=== PATIENT | male | born 1950 | race Caucasian/White ===

== ENCOUNTER 2016-08-19 10:04 | Inpatient (IN) | payer OTHER, MEDICARE ==
[~2016-08-19] VITALS: Ht 172.7 cm; Wt 93.1 kg
[~2016-08-19 10:04] MED LIST: CELE200 PO; FENT75DI TD; GLUC10TA3 PO; LISI40TA PO; ZOCO40TA PO; ZOFR4TAB3 SL; [UNRECOGNIZED DRUG - OTHER]
[2016-08-19 10:14] VITALS: BP 141/84; PULSE 74; RESP 16; TEMP 98.2; O2SAT 98
[2016-08-19] MEDS ORDERED: LISI10TA3 PO (10:33)
[2016-08-19] MEDS ORDERED: TORS20TA PO (10:33)
[2016-08-19] MEDS ORDERED: ASPI81CH CHEW (10:33)
[2016-08-19] MEDS ORDERED: CELE1CAP6 PO (10:33)
[2016-08-19] MEDS ORDERED: TRAM50TA PO (10:33)
[2016-08-19] MEDS ORDERED: FENT25DI T-DERMAL (10:33)
[2016-08-19] MEDS ORDERED: GLIP10TA6 PO (10:33)
--- NOTE | 2016-08-19 10:44 | PD ---
HPI Chief Complaint: Dizziness Time Seen by Provider: 10:32 Travel History International Travel<30 days: No Contact w/Intl Traveler<30days: No Traveled to known affect area: No History of Present Illness HPI 66-year-old male with history of hypertension, diabetes, right nephrectomy secondary to cancer 10 years ago, presents to the ER today because patient is having 3 days history of intermittent dizziness where he states he feels like the room is spinning. He had a syncopal episode today according to his , she found him on the floor and he was somewhat disoriented. Patient does not remember episode. He states that the dizziness has subsided now. He denies any chest pains, shortness of breath, palpitations, vomiting, fevers, or any other symptoms. Modifying Factors: None Associated Signs & Symptoms: Dizziness, syncope Risk Factors: None PFSH Past Medical History Hx Anticoagulant Therapy: Yes (asa 81mg) Arthritis: Yes Blood Disorders: No Cancer: Yes (KIDNEY) Cardiovascular Problems: Yes (htn on meds) High Cholesterol: Yes Chemotherapy: No Diabetes: Yes (type 2) Patient Takes Glucophage: No Diminished Hearing: No Endocrine: Yes Gastrointestinal Disorders: No Glaucoma: Yes Genitourinary: Yes Hepatitis: No Hiatal Hernia: No Hypertension: Yes Immune Disorder: No Kidney Stones: Yes Medical other: Yes (LUMBAR FUSION) Musculoskeletal: Yes Neurologic: No Psychiatric: No Respiratory: Yes (EMPHYSEMA,HX PNEUMONIA) Immunizations Current: Yes Radiation Therapy: No Renal Failure: Yes Thyroid Disease: No Past Surgical History Abdominal Surgery: Yes (APPENDECTOMY) Appendectomy: Yes Cardiac Surgery: No Ear Surgery: No Endocrine Surgery: No Eye Surgery: Yes (LEFT CATARACT SX, LEFT VITRECTOMY) Genitourinary Surgery: Yes (RIGHT NEPHRECTOMY) Gynecologic Surgery: No Joint Replacement: Yes (BILATERAL SHOULDER) Neurologic Surgery: No Oral Surgery: Yes (TEETH EXTRACTED,DENTAL IMPLANTS) Pacemaker: No Thoracic Surgery: No Other Surgery: Yes Social History Alcohol Use: No Tobacco Use: Yes (1/2K/DAY) Substance Use: No Allergies-Medications (Allergen,Severity, Reaction): Coded Allergies: Neurontin (Verified Allergy, Severe, Swelling, 08/14/11) Reported Meds & Prescriptions Reported Meds & Active Scripts Active Reported Glipizide 10 Mg Tab 10 Mg PO BIDAC Take 30 minutes before a meal Torsemide 20 Mg Tab 20 Mg PO DAILY Celecoxib 100 Mg Cap 100 Mg PO BID Tramadol (Tramadol HCl) 50 Mg Tab 50 Mg PO Q4H PRN Fentanyl Patch 72 HR (Fentanyl) 25 Mcg/Hr Patch 25 Mcg T-DERMAL Q72H Lisinopril 10 Mg Tab 10 Mg PO DAILY Aspirin 81 Mg Chew 81 Mg CHEW DAILY Review of Systems Except as stated in HPI: all other systems reviewed are Neg Physical Exam Narrative GENERAL: Well-developed elderly white male patient currently in mild distress. Awake and oriented 3. SKIN: Focused skin assessment warm/dry. HEAD: Atraumatic. Normocephalic. EYES: Pupils equal and round. No scleral icterus. No injection or drainage. ENT: No nasal bleeding or discharge. Mucous membranes pink and moist. NECK: Trachea midline. No JVD. CARDIOVASCULAR: Regular rate and rhythm. No murmur appreciated. RESPIRATORY: No accessory muscle use. Clear to auscultation. Breath sounds equal bilaterally. GASTROINTESTINAL: Abdomen soft, non-tender, nondistended. Hepatic and splenic margins not palpable. MUSCULOSKELETAL: No obvious deformities. No clubbing. No cyanosis. No edema. NEUROLOGICAL: Awake and alert. No obvious cranial nerve deficits. Motor grossly within normal limits. Normal speech. PSYCHIATRIC: Appropriate mood and affect; insight and judgment normal. Data Data Last Documented VS Vital Signs Date Time Temp Pulse Resp B/P Pulse Ox O2 Delivery O2 Flow Rate FiO2 08/19/16 11:22 98 Room Air 08/19/16 10:14 98.2 74 16 141/84 Orders Electrocardiogram (08/19/16 10:32) Complete Blood Count With Diff (08/19/16 10:32) Comprehensive Metabolic Panel (08/19/16 10:32) Magnesium (Mg) (08/19/16 10:32) Ckmb (Isoenzyme) Profile (08/19/16 10:32) Troponin I (08/19/16 10:32) Urinalysis - C+S If Indicated (08/19/16 10:32) Chest, Single Ap (08/19/16 10:32) Ct Brain W/O Iv Contrast(Rout) (08/19/16 10:32) Ecg Monitoring (08/19/16 10:32) Iv Access Insert/Monitor (08/19/16 10:32) Oximetry (08/19/16 10:32) Meclizine (Antivert) (08/19/16 10:45) Sodium Chloride 0.9% Flush (Ns Flush) (08/19/16 10:45) Aspirin (Aspirin) (08/19/16 11:30) Labs Laboratory Tests Test 08/19/16 10:51 White Blood Count 9.5 TH/MM3 Red Blood Count 4.74 MIL/MM3 Hemoglobin 14.8 GM/DL Hematocrit 43.3 % Mean Corpuscular Volume 91.3 FL Mean Corpuscular Hemoglobin 31.1 PG Mean Corpuscular Hemoglobin 34.1 % Concent Red Cell Distribution Width 12.0 % Platelet Count 196 TH/MM3 Mean Platelet Volume 6.9 FL Neutrophils (%) (Auto) 75.4 % Lymphocytes (%) (Auto) 17.4 % Monocytes (%) (Auto) 5.2 % Eosinophils (%) (Auto) 1.6 % Basophils (%) (Auto) 0.4 % Neutrophils # (Auto) 7.1 TH/MM3 Lymphocytes # (Auto) 1.7 TH/MM3 Monocytes # (Auto) 0.5 TH/MM3 Eosinophils # (Auto) 0.2 TH/MM3 Basophils # (Auto) 0.0 TH/MM3 CBC Comment DIFF FINAL Differential Comment Urine Color STRAW Urine Turbidity CLEAR Urine pH 6.5 Urine Specific Marlow 1.005 Urine Protein NEG mg/dL Urine Glucose (UA) NEG mg/dL Urine Ketones NEG mg/dL Urine Occult Blood NEG Urine Nitrite NEG Urine Bilirubin NEG Urine Leukocyte Esterase NEG Urine Squamous Epithelial 0-5 /hpf Cells Urine Bacteria RARE /hpf Microscopic Urinalysis Comment CULT NOT INDICATED Sodium Level 136 MEQ/L Potassium Level 4.2 MEQ/L Chloride Level 101 MEQ/L Carbon Dioxide Level 28.1 MEQ/L Anion Gap 7 MEQ/L Blood Urea Nitrogen 28 MG/DL Creatinine 1.10 MG/DL Estimat Glomerular Filtration 67 ML/MIN Rate Random Glucose 249 MG/DL Calcium Level 9.3 MG/DL Magnesium Level 2.3 MG/DL Total Bilirubin 0.3 MG/DL Aspartate Amino Transf 13 U/L (AST/SGOT) Alanine Aminotransferase 30 U/L (ALT/SGPT) Alkaline Phosphatase 116 U/L Total Creatine Kinase 90 U/L Troponin I LESS THAN 0.02 NG/ML Total Protein 7.0 GM/DL Albumin 3.9 GM/DL [facility] Medical Decision Making Medical Screen Exam Complete: Yes Emergency Medical Condition: Yes Medical Record Reviewed: Yes Interpretation(s) Normal sinus rhythm at a rate of 77 bpm with no signs of acute ST-T changes. Laboratory Tests Test 08/19/16 10:51 Mean Platelet Volume 6.9 FL (7.0-11.0) Neutrophils (%) (Auto) 75.4 % (16.0-70.0) Urine Bacteria RARE /hpf (NONE) Blood Urea Nitrogen 28 MG/DL (7-18) Estimat Glomerular Filtration 67 ML/MIN (>89) Rate Random Glucose 249 MG/DL (74-106) Aspartate Amino Transf 13 U/L (15-37) (AST/SGOT) Troponin I LESS THAN 0.02 NG/ML (0.02-0.05) Last [address] 08/19/16 1032 Signed Impressions: Service Date/Time: Friday, August 19, 2016 10:59 - CONCLUSION: 1. No acute intracranial abnormality. Wero Oshea MD Chest X-Ray 08/19/16 1032 Signed Impressions: Service Date/Time: Friday, August 19, 2016 10:58 - CONCLUSION: No acute disease. Jordy Hurd MD FACR Differential Diagnosis Dizziness, syncopal episodebenign positional vertigo versus hypertensive urgency versus acute intracranial processes versus CVA Narrative Course EKG did not show any signs of dysrhythmias. CT of the brain is negative for any signs of acute intracranial processes. Lab work is unremarkable. His blood pressures low and high side but vital signs otherwise unremarkable. Patient has no focal neurological deficits currently. However, I am concerned about patient's syncopal episode which is fairly atypical for vertigo. He had been given meclizine in the ER with mild symptom relief. At this point, aspirin was given and my plan would be to admit him for further evaluation for possibility of central vertigo, TIA, versus other acute processes causing syncope. Case was discussed with [facility] hospitalists for admission. Diagnosis Primary Impression: Syncope Admitting Information Admitting Physician Requests: Admit Daisy Staton MD Aug 19, 2016 10:44
[2016-08-19] MEDS ORDERED: MECLIZINE HCL 25 MG TAB PO ONE (10:45)
[2016-08-19] MEDS ORDERED: SODIUM CHLORIDE 0.9% FLUSH 10 ML FLUSH IVF PRN (10:45)
[2016-08-19 10:55] LABS: AUTOMATED NEUTROPHIL # 7.1 TH/MM3 (1.8-7.7); BASOPHIL % 0.4 % (0.0-2.0); EOSINOPHIL # 0.2 TH/MM3 (0-0.4); EOSINOPHIL % 1.6 % (0.0-4.0); HEMATOCRIT 43.3 % (39.0-51.0); LYMPH % 17.4 % (9.0-44.0); LYMPHOCYTE # 1.7 TH/MM3 (1.0-4.8); MEAN CELL VOLUME 91.3 FL (80.0-100.0); MEAN CORPUSCULAR HEMOGLOBIN 31.1 PG (27.0-34.0); MEAN CORPUSCULAR HGB CONC 34.1 % (32.0-36.0); MONO % 5.2 % (0.0-8.0); NEUT % 75.4 % (16.0-70.0); PLATELET COUNT 196 TH/MM3 (150-450); RED BLOOD COUNT 4.74 MIL/MM3 (4.50-5.90); WHITE BLOOD COUNT 9.5 TH/MM3 (4.0-11.0)
[2016-08-19 10:58] LABS: BLOOD, URINE NEG (NEG); GLUCOSE,URINE NEG (NEG); KETONE, URINE NEG (NEG); NITRITE,URINE NEG (NEG); PH, URINE 6.5 (5.0-8.5)
[2016-08-19 11:02] LABS: URINE COLOR STRAW (YELLW/STRAW)
[2016-08-19 11:03] LABS: CHLORIDE 101 MEQ/L (98-107); POTASSIUM 4.2 MEQ/L (3.5-5.1); SODIUM (NA) 136 MEQ/L (136-145)
[2016-08-19 11:07] LABS: ANION GAP 7 MEQ/L (5-15); BICARBONATE 28.1 MEQ/L (21.0-32.0); BLOOD UREA NITROGEN 28 MG/DL (7-18); MAGNESIUM 2.3 MG/DL (1.5-2.5)
--- NOTE | 2016-08-19 11:09 | RADHPO ---
EXAM DATE/TIME: 08/19/2016 10:58 [facility] COMPARISON: No previous studies available for comparison. INDICATIONS : Chest palpatations and dizziness MEDICAL HISTORY : None. SURGICAL HISTORY : None. ENCOUNTER: Initial ACUITY: 3 days PAIN SCORE: 0/10 LOCATION: Bilateral chest FINDINGS: A single view of the chest demonstrates the lungs to be symmetrically aerated without evidence of mas s, infiltrate or effusion. The cardiomediastinal contours are unremarkable. Osseous structures are intact. CONCLUSION: No acute disease. Jordy Hurd MD FACR on August 19, 2016 at 11:07 Board Certified Radiologist. This report was verified electronically.
[2016-08-19 11:10] LABS: ALT (GPT) 30 U/L (12-78); AST (GOT) 13 U/L (15-37); GLOMERULAR FILTRATION RATE 67 ML/MIN (>89)
[2016-08-19 11:11] LABS: BACTERIA, URINE RARE /hpf; COMMENT (UR) CULT NOT INDICATED; CULTURE IF INDICATED CULT NOT INDICATED; SQUAMOUS EPITHELIAL CELL URINE 0-5 /hpf (0-5)
[2016-08-19 11:12] LABS: TOTAL BILIRUBIN ADULT 0.3 MG/DL (0.2-1.0)
[2016-08-19 11:13] LABS: ALKALINE PHOSPHATASE 116 U/L (45-117)
[2016-08-19 11:14] LABS: HEMO FLAGS DIFF FINAL
--- NOTE | 2016-08-19 11:14 | RADHPO ---
EXAM DATE/TIME: 08/19/2016 10:59 [facility] COMPARISON: No previous studies available for comparison. INDICATIONS : Dizziness for three days and felt like he was going to pass out today. RADIATION DOSE: 59.00 CTDIvol (mGy) MEDICAL HISTORY : Hypertension. Anticoagulant therapy. Right renal cancer. SURGICAL HISTORY : Nephrectomy, right. Appendectomy. ENCOUNTER: Initial ACUITY: 3 days PAIN SCALE: 0/10 LOCATION: cranial TECHNIQUE: Multiple contiguous axial images were obtained of the head. Using automated exposure control and adj ustment of the mA and/or kV according to patient size, radiation dose was kept as low as reasonably a chievable to obtain optimal diagnostic quality images. FINDINGS: CEREBRUM: The ventricles are normal for age. No evidence of midline shift, mass lesion, hemorrhage or acute in farction. No extra-axial fluid collections are seen. POSTERIOR FOSSA: The cerebellum and brainstem are intact. The 4th ventricle is midline. The cerebellopontine angle i s unremarkable. EXTRACRANIAL: The visualized portion of the orbits is intact. SKULL: The calvaria is intact. No evidence of skull fracture. CONCLUSION: 1. No acute intracranial abnormality. Wero Oshea MD on August 19, 2016 at 11:10 Board Certified Radiologist. This report was verified electronically.
[2016-08-19 11:15] LABS: CREATINE KINASE 90 U/L (39-308)
[2016-08-19 11:22] VITALS: O2SAT 98
[2016-08-19] MEDS ORDERED: ASPIRIN 325 MG TAB PO ONE (11:30)
[2016-08-19 13:42] VITALS: BP 136/71; PULSE 77; RESP 18; O2SAT 97
[2016-08-19] MEDS ORDERED: SENNOSIDES 8.6 MG TAB PO PRN (15:15)
[2016-08-19] MEDS ORDERED: LACTULOSE SYRUP 20 GM/30 ML CUP PO PRN (15:15)
[2016-08-19] MEDS ORDERED: BISACODYL 10 MG SUPP RECTAL PRN (15:15)
[2016-08-19] MEDS ORDERED: ACETAMINOPHEN 325 MG TAB PO PRN (15:15)
[2016-08-19] MEDS ORDERED: NALOXONE HCL 0.4 MG/ML AMP IV PRN (15:15)
[2016-08-19] MEDS ORDERED: ONDANSETRON HCL 4 MG/2 ML VIAL IVP PRN (15:15)
[2016-08-19] MEDS ORDERED: SODIUM CHLORIDE 0.9% FLUSH 10 ML FLUSH IV FLUSH PRN (15:15)
[2016-08-19] MEDS ORDERED: MAGNESIUM HYDROXIDE SUSP 30 ML CUP PO PRN (15:15)
[2016-08-19 15:18] VITALS: BP 145/88; PULSE 72; RESP 16; TEMP 97.6; O2SAT 95
--- NOTE | 2016-08-19 15:54 | RADHPO ---
EXAM DATE/TIME: 08/19/2016 15:31 [facility] COMPARISON: No previous studies available for comparison. INDICATIONS : Syncope. MEDICAL HISTORY : Hypercholesterolemia. Hypertension. Diabetes mellitus type 2. Glaucoma. Kidney cancer. Arthritis. SURGICAL HISTORY : Appendectomy. Nephrectomy, right. Bilateral shoulder surgery. Lumbar fusion. ENCOUNTER: Initial ACUITY: 1 day PAIN SCORE: 1/10 LOCATION: Bilateral neck PEAK SYSTOLIC VELOCITIES (cm/sec): ICA/CCA RATIO: Right: 1.0 Left: 0.8 ICA: Right: 85 Left: 89 CCA: Right: 89 Left: 112 ECA: Right: 98 Left: 90 VERTEBRAL: Right: 37 antegrade Left: 70 antegrade Elevated flow velocities and ICA/CCA ratios have been found to correlate with increased degrees of vessel stenosis, calculated as percentage of diameter relative to a normal segment of distal ICA/CCA FINDINGS: RIGHT CAROTID: There is no evidence for a hemodynamically significant carotid stenosis. Minimal int imal hyperplasia is present with scattered calcific plaque. LEFT CAROTID: There is no evidence for a hemodynamically significant carotid stenosis. Minimal inti mal hyperplasia is present with scattered calcific plaque. VERTEBRAL ARTERIES: Flow is antegrade in both vertebral arteries. MISCELLANEOUS: There are no ancillary masses or adenopathy. CONCLUSION: Negative examination for a hemodynamically significant carotid stenosis. Jordy Hurd MD FACR Board Certified Radiologist. This report was verified electronically.
[2016-08-19] MEDS: SODIUM CHLOR 0.9% 1000 ML INJ 1,000 ML IV SCH (16:09)
[2016-08-19 16:25] VITALS: BP 145/88; PULSE 72; RESP 16; TEMP 97.6; O2SAT 95
--- NOTE | 2016-08-19 19:03 | MB ---
cc: SELENA VASQUEZ M.D. DATE OF CONSULTATION 08/19/16 HISTORY OF PRESENT ILLNESS A 66-year-old seen in neurological consultation because of dizziness and syncope. The patient has been having dizziness for the past 3 days. Today apparently his left home and the patient was dizzy and called her later on. She came and saw him on the floor, he does not have good recollection of the event but he was apparently poorly responsive. He was brought to the hospital. CT brain and carotid ultrasound studies were normal. He has no neurologic history otherwise. He denies double vision. No paresthesias. No speech difficulty. PAST MEDICAL HISTORY His medical history includes a nephrectomy from cancer 10 years ago and he has a single kidney. History of diabetes and hypertensive disease. He and he has a neurostimulator for pain. MEDICATIONS The patient takes: 1. Baby aspirin. 2. Lisinopril. 3. Celebrex. 4. Fentanyl patch. 5. Glipizide. 6. Tramadol. 7. Torsemide. NEUROLOGICAL EXAMINATION Neurological examination was very benign. Ocular movements and visual hernández full. Neck is supple. Pupils equal and reactive. Speech is normal. He has good strength and coordination on the bedside exam. Reflexes were 1+, diminished but present at the ankles and plantar responses flexor. DATA Other ancillary data, chemistry essentially normal with the BUN being 28 and GFR is 67. Sodium, potassium normal. Glucose random was 249. WBC 9.5, hemoglobin 14.8, platelets 196. ASSESSMENT/PLAN Recurrent vertigo probably from peripheral vestibular disease. He had a syncopal episode as well. I will see if we can run CT angio head and neck. He cannot have an MRI because of the neurostimulator. An EEG is to be done. He will be followed. Thank you for asking us to assist in his care. Selena Vasquez MD OFC/EO /5:20 PM /6:52 PM
[2016-08-19] MEDS ORDERED: IODIXANOL 320 MG/ML 10 ML VIAL (for Rad CT) IV ONE (19:15)
[2016-08-19 20:00] VITALS: BP 144/84; PULSE 77; RESP 18; TEMP 95.9; O2SAT 96
[2016-08-19] MEDS: DOCUSATE SODIUM 50 MG/SENNA 8.6 MG TAB PO SCH (21:00)
[2016-08-19] MEDS: SODIUM CHLORIDE 0.9% FLUSH 10 ML FLUSH IV FLUSH SCH (21:00)
--- NOTE | 2016-08-19 23:17 | RADHPO ---
EXAM DATE/TIME: 08/19/2016 19:00 [facility] COMPARISON: No previous studies available for comparison. INDICATIONS : Dizziness. IV CONTRAST: 50 cc Visipaque (iodixanol) IV ; Cumulative dose for multiple exams. RADIATION DOSE: 42.31 CTDIvol (mGy) ; Combined studies MEDICAL HISTORY : Hypertension. Anticoagulant therapy. Right renal cancer. SURGICAL HISTORY : Nephrectomy, right. Appendectomy. ENCOUNTER: Subsequent ACUITY: 3 days PAIN SCALE: 0/10 LOCATION: cranial TECHNIQUE: Volumetric scanning was performed using a multi-row detector CT scanner. The data was post processed with a variety of visualization algorithms including full volume maximum intensity projection, multi -planar sliding thin slab reformation, curved planar reformation, and surface rendering techniques. Using automated exposure control and adjustment of the mA and/or kV according to patient size, radiat ion dose was kept as low as reasonably achievable to obtain optimal diagnostic quality images. FINDINGS: There is excellent visualization of the major intracranial arteries out to the second-order branch ve ssels. There is no evidence for aneurysm, vessel truncation or stenosis, and no evidence for vascula r malformation. The anterior cerebral segment on the left is quite hypoplastic. The P1 segment on the right is hypopl astic. Prominent communicating artery on the right contributes the majority of the flow to the poste rior cerebral system CONCLUSION: Normal examination with a hypoplastic left A1 and right P1. No aneurysm is identified. Malik Diaz MD on August 19, 2016 at 23:15 Board Certified Radiologist. This report was verified electronically.
--- NOTE | 2016-08-19 23:30 | RADHPO ---
EXAM DATE/TIME: 08/19/2016 19:00 [facility] COMPARISON: No previous studies available for comparison. INDICATIONS : Dizziness. IV CONTRAST: 50 cc Visipaque (iodixanol) IV ; Cumulative dose for multiple exams. RADIATION DOSE: 42.31 CTDIvol (mGy) ; Combined studies MEDICAL HISTORY : Hypertension. Anticoagulant therapy. Right renal cancer. SURGICAL HISTORY : Nephrectomy, right. Appendectomy. ENCOUNTER: Subsequent ACUITY: 3 days PAIN SCALE: 0/10 LOCATION: neck Elevated flow velocities and ICA/CCA ratios have been found to correlate with increased degrees of vessel stenosis, calculated as percentage of diameter relative to a normal segment of distal ICA/CCA. TECHNIQUE: Volumetric scanning was performed using a multirow detector CT scanner. The data was post processed with a variety of visualization algorithms including full-volume maximum intensity projection, multip lanar sliding thin-slab reformation, curved-planar reformation, and surface-rendering techniques. Us ing automated exposure control and adjustment of the mA and/or kV according to patient size, radiatio n dose was kept as low as reasonably achievable to obtain optimal diagnostic quality images. FINDINGS: AORTIC ARCH: There is a three-vessel origin of the great vessels from the aorta. No evidence of ostial narrowing. RIGHT CAROTID: The common carotid artery is intact. The carotid bulb has a normal configuration without ulceration o r narrowing. The internal carotid artery lumen is smooth without stenosis. The external carotid aquilino ry is intact. LEFT CAROTID: The common carotid artery is intact. The carotid bulb has a normal configuration without ulceration or narrowing. The internal carotid artery lumen is smooth without stenosis. The external carotid ar keny is intact. VERTEBRALS: The vertebral arteries have a symmetric diameter. No stenotic lesions are seen. CONCLUSION: Normal examination. Malik Diaz MD on August 19, 2016 at 23:26 Board Certified Radiologist. This report was verified electronically.
[2016-08-20] VITALS (7 sets, daily range): BP systolic 114–142; BP diastolic 70–87; PULSE 67–87; RESP 18–20; TEMP 96.9–98; O2SAT 96–99
[2016-08-20] MEDS: SODIUM CHLOR 0.9% 1000 ML INJ 1,000 ML IV SCH ×2 (01:15→21:15)
[2016-08-20 06:27] LABS: AUTOMATED NEUTROPHIL # 6.3 TH/MM3 (1.8-7.7); BASOPHIL % 0.4 % (0.0-2.0); EOSINOPHIL # 0.2 TH/MM3 (0-0.4); EOSINOPHIL % 2.7 % (0.0-4.0); HEMATOCRIT 42.3 % (39.0-51.0); HEMO FLAGS DIFF FINAL; LYMPH % 21.6 % (9.0-44.0); LYMPHOCYTE # 1.9 TH/MM3 (1.0-4.8); MEAN CELL VOLUME 93.2 FL (80.0-100.0); MEAN CORPUSCULAR HEMOGLOBIN 31.2 PG (27.0-34.0); MEAN CORPUSCULAR HGB CONC 33.5 % (32.0-36.0); MONO % 5.1 % (0.0-8.0); NEUT % 70.2 % (16.0-70.0); PLATELET COUNT 192 TH/MM3 (150-450); RED BLOOD COUNT 4.54 MIL/MM3 (4.50-5.90); RED CELL DISTRIBUTION WIDTH 12.6 % (11.6-17.2); WHITE BLOOD COUNT 8.8 TH/MM3 (4.0-11.0)
[2016-08-20 06:44] LABS: BICARBONATE 26.3 MEQ/L (21.0-32.0); POTASSIUM 3.8 MEQ/L (3.5-5.1)
[2016-08-20] MEDS: DOCUSATE SODIUM 50 MG/SENNA 8.6 MG TAB PO SCH ×2 (09:00→21:00)
--- NOTE | 2016-08-20 09:05 | EC ---
Study Study Date:08/19/2016 STUDY CONCLUSIONS SUMMARY - Left ventricle: The cavity size was normal. Wall thickness was normal. Systolic function was normal. The estimated ejection fraction was in the range of 55% to 60%. Wall motion was normal; there were no regional wall motion abnormalities. - Mitral valve: Mild regurgitation. - Tricuspid valve: Mild regurgitation. - Pulmonary arteries: PA peak pressure: 37mm Hg (S). If LV function is below 40, please consider prescribing an ACEI or ARB or document rationale for non-use. PROCEDURE DATA STUDY STATUS: Elective. Procedure: Transthoracic echocardiography. Image quality was good. Scanning was performed from the parasternal, apical, and subcostal acoustic windows. Study completion: The patient tolerated the procedure well. Transthoracic echocardiography. M-mode, complete 2D, complete spectral Doppler, and color Doppler. Patient status: Inpatient. CARDIAC ANATOMY LEFT VENTRICLE: The cavity size was normal. Wall thickness was normal. Systolic function was normal. The estimated ejection fraction was in the range of 55% to 60%. Wall motion was normal; there were no regional wall motion abnormalities. AORTIC VALVE: Trileaflet; normal thickness leaflets. Doppler: Transvalvular velocity was within the normal range. There was no stenosis. No regurgitation. AORTA: Aortic root: The aortic root was normal in size. MITRAL VALVE: Structurally normal valve. Doppler: Transvalvular velocity was within the normal range. There was no evidence for stenosis. Mild regurgitation. LEFT ATRIUM: The atrium was normal in size. RIGHT VENTRICLE: The cavity size was normal. Wall thickness was normal. PULMONIC VALVE: Doppler: Transvalvular velocity was within the normal range. There was no evidence for stenosis. No regurgitation. TRICUSPID VALVE: Structurally normal valve. Doppler: Transvalvular velocity was within the normal range. Mild regurgitation. PULMONARY ARTERY: The main pulmonary artery was normal-sized. Systolic pressure was within the normal range. RIGHT ATRIUM: The atrium was normal in size. PERICARDIUM: There was no pericardial effusion. SYSTEMIC VEINS: Inferior vena cava: The vessel was normal in size. BASIC MEASUREMENTS ADULT Normal Left ventricle LV internal dimension, ED, chordal level, *39.6 mm 43-52 PLAX LV internal dimension, ES, chordal level, 30.5 mm 23-38 PLAX Fractional shortening, chordal level, PLAX *23 % >29 LV posterior wall thickness, ED 11.4 mm IVS/LVPW ratio, ED 1.03 <1.3 Ventricular septum Septal thickness, ED 11.7 mm Aortic valve Leaflet separation 23 mm 15-26 Right ventricle RV internal dimension, ED, PLAX 32.7 mm 19-38 BASIC MEASUREMENTS ADULT Normal Aortic valve Leaflet separation 23 mm 15-26 Aorta Root diameter, ED 31 mm 20-37 Left atrium Anterior-posterior dimension, ES 30 mm 19-40 LA/aortic root ratio 0.97 DOPPLER MEASUREMENTS ADULT Normal Main pulmonary artery Pressure, S *37 mm Hg =30 Mitral valve Peak E-wave velocity 54.3 cm/s Peak A-wave velocity 89.3 cm/s Peak E/A ratio 0.6 Tricuspid valve Regurgitant peak velocity 258 cm/s Peak RV-RA gradient, S 27 mm Hg Maximal regurgitant velocity 258 cm/s Systemic veins Estimated CVP 10 mm Hg Right ventricle RV pressure, S *37 mm Hg <30 LEGEND: Mean values are shown as u=mean value. Asterisk (*) singh values outside specified normal range. Prepared and signed by Benito Rudd [id number]
[2016-08-20] MEDS: SODIUM CHLORIDE 0.9% FLUSH 10 ML FLUSH IV FLUSH SCH ×2 (10:14→21:58)
[2016-08-20] MEDS ORDERED: ZOCO40TA PO (12:45)
--- NOTE | 2016-08-20 13:09 | MG ---
cc: MORELIA WADE Lab No: [id number] Date: 08/20/2016 Age: Sex: M Race: TECHNIQUE 17 channel EEG. DESCRIPTION The background rhythm reveals a symmetrical alpha rhythm frequency 8-9 Hz. During drowsiness there is slowing in the theta range at 6 Hz. Photic stimulation results in a normal driving response. There are no lateralizing features seen and no epileptiform discharges. Hyperventilation was not done. INTERPRETATION Normal EEG. MD DARON Valencia/candie /12:46 PM /12:56 PM
[2016-08-20] MEDS ORDERED: traMADol HCL 50 MG TAB PO PRN (13:30)
[2016-08-20] MEDS ORDERED: DEXTROSE 50% IN WATER 50 ML VIAL(D50) IV PRN (13:45)
[2016-08-20] MEDS ORDERED: GLUCAGON 1 MG/ML VIAL OTHER PRN (13:45)
[2016-08-20] MEDS ORDERED: fentaNYL 25 MCG/HR PATCH T-DERMAL SCH (14:00)
--- NOTE | 2016-08-20 14:27 | MH ---
cc: LENNY GRANADOS MD DATE OF ADMISSION: 08/19/2016 CHIEF COMPLAINT Dizziness. HISTORY OF PRESENT ILLNESS: This is a 66 year-old male whose past medical history and surgical history is significant for arthritis, history of cancer of the kidney, hypertension, hyperlipidemia, diabetes mellitus type 2. History of lumbar fusion. Kidney stones, history of emphysema, appendectomy, left cataract surgery. Left vitrectomy, right nephrectomy, bilateral shoulder surgery, teeth extraction, dental implants, smoker for many years, complaining of dizziness and also has history of arthritis, hyperlipidemia. He came to the emergency room at [facility]. He had an nephrectomy of the right kidney ten years ago secondary to cancer and complaining of intermittent dizziness, however, he states that feels like the room is spinning. He said he had a syncopal episode today, according to his who found him on the floor and he was somewhat disordered. The patient does not remember episode. The patients states that the dizziness has subsided now but only comes with head movement. Denies any chest pain, shortness of breath, palpitations or vomiting, fever, chills, denies any nausea and vomiting, diarrhea, constipation, denies any black stool or blood in stool and denies any other symptoms other then that. PAST MEDICAL HISTORY/PAST SURGICAL HISTORY: As dictated above. SOCIAL HISTORY: Denies drinking alcohol, denies any drug abuse. Lives at home with the on disability. FAMILY HISTORY: Significant for diabetes mellitus. ALLERGIES NEURONTIN MEDICATIONS: 1. Glipizide 10 mg p.o. daily. 2. Furosemide 20 mg p.o. daily. 3. Celebrex 100 mg p.o. twice a day. 4. Tramadol 50 mg q four hours as needed pain. 5. Fentanyl 72 hour patches, 25 mcg every 72 hours. 6. Lisinopril 10 mg daily. 7. Aspirin 81 mg p.o. daily. REVIEW OF SYSTEMS Positive for dizziness. All other systems negative. PHYSICAL EXAMINATION: IN GENERAL: This is a 66 year-old male sitting on the bed without any acute distress. VITAL SIGNS: Temperature 97.6. Heart rate 78, respirations 18, blood pressure 142/83. O2 saturation 97% on room air. HEAD, EYES, EARS, NOSE, AND THROAT: Normocephalic, atraumatic, extraocular muscles intact, Pupils equal, round and reactive to light. Oral mucosa is moist. NECK: The neck is supple, no visible thyromegaly or neck mass. Trachea is central. CARDIOVASCULAR SYSTEM: Regular rate and rhythm. RESPIRATORY: Clear to auscultation bilaterally. ABDOMEN: The abdomen is soft, nontender, bowel sounds. EXTREMITIES: No clubbing, cyanosis, full range of motion of all extremities. NEUROLOGIC: Cranial nerves intact, neck is supple. Pupils equal, round, reactive, speech is normal. Good strength, coordination, no gross motor sensory deficit. PSYCHIATRIC: Patient is cooperative, mood and affect are normal. LABORATORY FINDINGS: Complete blood count is totally unremarkable. Basic metabolic profile is totally unremarkable except for chloride of 109 high, blood urea nitrogen 23 high, glomerular filtration rate 75 low, glucose 151 high. Troponin I less then 0.02. Lactase is normal. Urine examination shows rare bacteria. CTA of the neck was done and shows normal examination. CT of the head was done and showed normal examination with hyperplastic left A1 and right A1, no aneurysm is identified. Carotid ultrasound done shows negative examination. No hemodynamically with significant stenosis. CT scan of the brain done shows nothing acute. Chest x-ray was done and shows nothing acute. ASSESSMENT AND PLAN: 1. This is a 66 year-old male who came to the emergency room, diagnosed with dizziness, CT of the head had carotid ultrasound and CT of the brain are within normal limits. The patient has dizziness with head movement. 2. Neurology has seen the patient, Dr. Weiss, most likely from peripheral vascular disease. The patient cannot have MRI because of neurotransmitter placement. The electroencephalogram will be done, further recommendations per neurology. 3. Symptom episode. Neurologist were noted, I will consult radiology for further recommendations. 4. History of hypertension, continue home medications. 5. History of diabetes mellitus, ADA diet 1800, we will <<5:57>> we will order a sliding scale, check blood sugars, monitor blood sugar. 6. Has history of chronic pain syndrome, continue with pain medications. 7. History of arthritis currently treated with Celebrex. 8. Deep venous thrombosis prophylaxis. SCDs. 9. Sickle-cell disease. 10. Gastrointestinal prophylaxis, Protonix 40 mg p.o. daily. We are going to manage the patient on a daily basis and make recommendations on a daily basis. MD Owen Blue /1:29 PM /1:39 PM
[2016-08-20] MEDS: glipiZIDE 10 MG TAB PO SCH (16:00)
[2016-08-20] MEDS: CELECOXIB 100 MG CAP PO SCH ×3 (16:00→21:57)
[2016-08-20] MEDS: PANTOPRAZOLE SOD 40 MG DELAYED RELEASE TAB PO SCH (16:01)
[2016-08-20] MEDS: LISINOPRIL 10 MG TAB PO SCH (16:01)
[2016-08-20] MEDS: MECLIZINE HCL 25 MG TAB PO SCH ×2 (16:11→18:58)
[2016-08-20] MEDS: ASPIRIN 81 MG CHEW TAB CHEW SCH (16:11)
[2016-08-20] MEDS: TORSEMIDE 20 MG TAB PO SCH (16:12)
[2016-08-20] MEDS: INSULIN ASPART SUPPLEMENTAL SCALE SQ SCH ×2 (16:21→21:57)
--- NOTE | 2016-08-20 21:47 | EKG ---
Date Performed: 08/19/2016 Time Performed: 10:34:46 PTAGE: 66 years EKG: Sinus rhythm Septal T wave changes are nonspecific Since previous tracing, no significant change noted Borderline ECG PREVIOUS TRACING : 12/02/2006 08.34 DOCTOR: Stefania Brown Interpretating Date/Time 08/20/2016 21:45:08
[2016-08-20] MEDS: PRAVASTATIN SOD 80 MG TAB PO SCH (21:57)
[2016-08-21] VITALS: BP 118/68; PULSE 80; RESP 16; TEMP 97.8; O2SAT 97
[2016-08-21] MEDS: MECLIZINE HCL 25 MG TAB PO SCH ×5 (00:28→23:55)
[2016-08-21 06:28] LABS: AUTOMATED NEUTROPHIL # 5.6 TH/MM3 (1.8-7.7); BASOPHIL % 0.5 % (0.0-2.0); EOSINOPHIL # 0.3 TH/MM3 (0-0.4); EOSINOPHIL % 2.8 % (0.0-4.0); HEMATOCRIT 44.4 % (39.0-51.0); HEMO FLAGS DIFF FINAL; LYMPH % 28.3 % (9.0-44.0); LYMPHOCYTE # 2.5 TH/MM3 (1.0-4.8); MEAN CELL VOLUME 92.5 FL (80.0-100.0); MEAN CORPUSCULAR HGB CONC 33.5 % (32.0-36.0); MONO % 5.9 % (0.0-8.0); NEUT % 62.5 % (16.0-70.0); PLATELET COUNT 188 TH/MM3 (150-450); RED CELL DISTRIBUTION WIDTH 12.1 % (11.6-17.2); WHITE BLOOD COUNT 8.9 TH/MM3 (4.0-11.0)
[2016-08-21 06:43] LABS: CHLORIDE 106 MEQ/L (98-107); POTASSIUM 3.9 MEQ/L (3.5-5.1); SODIUM (NA) 142 MEQ/L (136-145)
[2016-08-21 06:48] LABS: ANION GAP 6 MEQ/L (5-15); BICARBONATE 30.1 MEQ/L (21.0-32.0); BLOOD UREA NITROGEN 22 MG/DL (7-18)
[2016-08-21 06:51] LABS: ALT (GPT) 27 U/L (12-78); AST (GOT) 14 U/L (15-37); GLOMERULAR FILTRATION RATE 61 ML/MIN (>89)
[2016-08-21 06:53] LABS: TOTAL BILIRUBIN ADULT 0.6 MG/DL (0.2-1.0)
[2016-08-21 06:54] LABS: ALKALINE PHOSPHATASE 109 U/L (45-117)
[2016-08-21] MEDS: glipiZIDE 10 MG TAB PO SCH ×2 (07:14→17:44)
[2016-08-21] MEDS: SODIUM CHLOR 0.9% 1000 ML INJ 1,000 ML IV SCH (07:15)
[2016-08-21 08:00] VITALS: BP 119/71; PULSE 18; RESP 18; TEMP 97.2; O2SAT 97
[2016-08-21 08:05] VITALS: PULSE 65
--- NOTE | 2016-08-21 08:49 | HHI.PR ---
Subjective History of Present Illness Patient feel better dizziness better but still feel light headedness have syncope consulted cardiology. d/w patient and family at bed side. Review of Systems Constitutional Constitutional: Fatigue, Weakness Neurologic Neurologic: Lightheaded Vitals/Results Intake & Output 08/20/16 08/20/16 08/21/16 15:00 23:00 07:00 Intake Total 850 ml 720 ml 960 ml Balance 850 ml 720 ml 960 ml Intake Oral 850 ml 720 ml 960 ml # Voids 6 3 3 # Bowel Movements 0 0 Vital Signs Vital Signs Date Time Temp Pulse Resp B/P Pulse Ox O2 Delivery O2 Flow Rate FiO2 08/21/16 00:00 Automatic Cuff 08/20/16 23:30 96.9 67 20 124/81 99 08/20/16 20:00 67 08/20/16 20:00 97.1 77 20 118/71 98 08/20/16 16:00 98.0 87 18 140/78 96 08/20/16 12:00 98.0 83 20 141/87 96 CBC/BMP: 08/21/16 0547 08/21/16 0547 Lab Results Laboratory Tests Test 08/21/16 05:47 White Blood Count 8.9 TH/MM3 Red Blood Count 4.80 MIL/MM3 Hemoglobin 14.9 GM/DL Hematocrit 44.4 % Mean Corpuscular Volume 92.5 FL Mean Corpuscular Hemoglobin 31.0 PG Mean Corpuscular Hemoglobin 33.5 % Concent Red Cell Distribution Width 12.1 % Platelet Count 188 TH/MM3 Mean Platelet Volume 7.3 FL Neutrophils (%) (Auto) 62.5 % Lymphocytes (%) (Auto) 28.3 % Monocytes (%) (Auto) 5.9 % Eosinophils (%) (Auto) 2.8 % Basophils (%) (Auto) 0.5 % Neutrophils # (Auto) 5.6 TH/MM3 Lymphocytes # (Auto) 2.5 TH/MM3 Monocytes # (Auto) 0.5 TH/MM3 Eosinophils # (Auto) 0.3 TH/MM3 Basophils # (Auto) 0.0 TH/MM3 CBC Comment DIFF FINAL Differential Comment Sodium Level 142 MEQ/L Potassium Level 3.9 MEQ/L Chloride Level 106 MEQ/L Carbon Dioxide Level 30.1 MEQ/L Anion Gap 6 MEQ/L Blood Urea Nitrogen 22 MG/DL Creatinine 1.20 MG/DL Estimat Glomerular Filtration 61 ML/MIN Rate Random Glucose 148 MG/DL Calcium Level 8.9 MG/DL Total Bilirubin 0.6 MG/DL Aspartate Amino Transf 14 U/L (AST/SGOT) Alanine Aminotransferase 27 U/L (ALT/SGPT) Alkaline Phosphatase 109 U/L Total Protein 6.9 GM/DL Albumin 3.7 GM/DL Physical Exam General General Appearance: Well Developed, Well Nourished, No Acute Distress, Comfortable Eyes Eye Exam: Pupils Equal, Pupils Reactive, Sclera White, Extraocular Movement Intact Throat Throat Exam: Oral Mucosa [place] & Moist, Oral Pharynx Normal Neck Neck Exam: Neck Supple, Trachea Midline Pulmonary Resp Exam: Clear Bilaterally, Breath Sounds Equal, No Distress Cardiology CV Exam: Regular, Normal Sinus Rhythm Gastrointestinal/Abdomen GI Exam: Soft, Non-Tender, Bowel Sounds Present Musculoskeletal MS Exam: Normal Tone Integumentary Skin Exam: Clear, Warm, Dry, Intact Extremeties Extremities Exam: No Edema Neurologic Neuro Exam: Alert, Awake, Oriented, Speech Clear, Moving All Extremities, No Focal Deficits Psychiatric Psych Exam: Appropriate Responses VTE Prophylaxis VTE Prophylaxis Device: SCDs PUD Prophylasis PUD Prophylaxis: Protonix Assessment/Plan Assessment/Plan ASSESSMENT AND PLAN: 1. This is a 66 year-old male who came to the emergency room, diagnosed with dizziness, CT of the head had carotid ultrasound and CT of the brain are within normal limits. The patient has dizziness with head movement. Neurology has seen the patient, Dr. Weiss, most likely from peripheral vascular disease. The patient cannot have MRI because of neurotransmitter placement. The electroencephalogram was normal, further recommendations per neurology. 3. Syncopal episode. Neurologist input noted, Cradiology Consulted for further recommendations. 4. History of hypertension, continue home medications. 5. History of diabetes mellitus, ADA diet 1800, we will ADA diet on Insulin sliding scale, check blood sugars, monitor blood sugar. 6. Has history of chronic pain syndrome, continue with pain medications. 7. History of arthritis currently treated with Celebrex. 8. Deep venous thrombosis prophylaxis. SCDs. 9. Sickle-cell disease. 10. Gastrointestinal prophylaxis, Protonix 40 mg p.o. daily. We are going to manage the patient on a daily basis and make recommendations on a daily basis. Discussed Condition with: Patient Al Rivers MD Aug 21, 2016 08:48
[2016-08-21] MEDS: DOCUSATE SODIUM 50 MG/SENNA 8.6 MG TAB PO SCH ×2 (09:00→21:00)
[2016-08-21] MEDS: SODIUM CHLORIDE 0.9% FLUSH 10 ML FLUSH IV FLUSH SCH ×2 (09:00→22:20)
[2016-08-21] MEDS: PANTOPRAZOLE SOD 40 MG DELAYED RELEASE TAB PO SCH (09:14)
[2016-08-21] MEDS: LISINOPRIL 10 MG TAB PO SCH (09:14)
[2016-08-21] MEDS: TORSEMIDE 20 MG TAB PO SCH (09:14)
[2016-08-21] MEDS: ASPIRIN 81 MG CHEW TAB CHEW SCH (09:14)
[2016-08-21] MEDS: CELECOXIB 100 MG CAP PO SCH ×2 (09:15→22:20)
[2016-08-21] MEDS: INSULIN ASPART SUPPLEMENTAL SCALE SQ SCH ×4 (09:18→21:00)
[2016-08-21 12:00] VITALS: BP 111/67; PULSE 83; RESP 20; TEMP 97.3; O2SAT 97
[2016-08-21 16:00] VITALS: BP 111/67; PULSE 83; RESP 20; TEMP 97.3; O2SAT 97
[2016-08-21 20:00] VITALS: BP 106/65; PULSE 78; RESP 20; TEMP 97.5; O2SAT 96
[2016-08-21] MEDS: PRAVASTATIN SOD 80 MG TAB PO SCH (22:20)
[2016-08-22] VITALS: BP 96/63; PULSE 72; RESP 19; TEMP 97.6; O2SAT 96
[2016-08-22 04:00] VITALS: BP 106/58; PULSE 73; RESP 18; TEMP 96.4; O2SAT 96
[2016-08-22 05:51] LABS: AUTOMATED NEUTROPHIL # 4.5 TH/MM3 (1.8-7.7); BASOPHIL # 0.1 TH/MM3 (0-0.2); BASOPHIL % 1.1 % (0.0-2.0); EOSINOPHIL # 0.2 TH/MM3 (0-0.4); EOSINOPHIL % 2.8 % (0.0-4.0); HEMATOCRIT 45.8 % (39.0-51.0); HEMO FLAGS DIFF FINAL; LYMPH % 31.4 % (9.0-44.0); LYMPHOCYTE # 2.4 TH/MM3 (1.0-4.8); MEAN CELL VOLUME 91.5 FL (80.0-100.0); MEAN CORPUSCULAR HEMOGLOBIN 30.4 PG (27.0-34.0); MEAN CORPUSCULAR HGB CONC 33.3 % (32.0-36.0); MONO % 5.9 % (0.0-8.0); NEUT % 58.8 % (16.0-70.0); PLATELET COUNT 197 TH/MM3 (150-450); RED CELL DISTRIBUTION WIDTH 12.1 % (11.6-17.2); WHITE BLOOD COUNT 7.6 TH/MM3 (4.0-11.0)
[2016-08-22 05:54] LABS: CHLORIDE 107 MEQ/L (98-107); POTASSIUM 3.9 MEQ/L (3.5-5.1); SODIUM (NA) 142 MEQ/L (136-145)
[2016-08-22 06:06] LABS: ANION GAP 8 MEQ/L (5-15); BICARBONATE 26.8 MEQ/L (21.0-32.0); BLOOD UREA NITROGEN 29 MG/DL (7-18)
[2016-08-22 06:08] LABS: ALT (GPT) 30 U/L (12-78); AST (GOT) 20 U/L (15-37); GLOMERULAR FILTRATION RATE 61 ML/MIN (>89)
[2016-08-22 06:10] LABS: TOTAL BILIRUBIN ADULT 0.6 MG/DL (0.2-1.0)
[2016-08-22 06:11] LABS: ALKALINE PHOSPHATASE 107 U/L (45-117)
[2016-08-22] MEDS: MECLIZINE HCL 25 MG TAB PO SCH (06:32)
[2016-08-22] MEDS: glipiZIDE 10 MG TAB PO SCH (06:32)
[2016-08-22] MEDS: INSULIN ASPART SUPPLEMENTAL SCALE SQ SCH (06:39)
--- NOTE | 2016-08-22 07:48 | HHI.PR ---
Subjective History of Present Illness Patient feel better dizziness a lot better have syncope patient seen by cardiology need stress test as out patient d/w patient and family at bed side. wants to go home today ok to DC Home today. Review of Systems Constitutional Constitutional: Fatigue, Weakness Neurologic Neurologic: Lightheaded Vitals/Results Intake & Output 08/21/16 08/21/16 08/22/16 15:00 23:00 07:00 Intake Total 800 ml 240 ml 420 ml Balance 800 ml 240 ml 420 ml Intake Oral 300 ml 240 ml 420 ml IV Total 500 ml # Voids 1 3 # Bowel Movements 0 0 Vital Signs Vital Signs Date Time Temp Pulse Resp B/P Pulse Ox O2 Delivery O2 Flow Rate FiO2 08/22/16 04:00 96.4 73 18 106/58 96 08/22/16 00:00 97.6 72 19 96/63 96 08/21/16 20:00 97.5 78 20 106/65 96 08/21/16 16:00 97.3 83 20 111/67 97 08/21/16 12:00 97.3 83 20 111/67 97 08/21/16 08:05 65 08/21/16 08:00 97.2 18 18 119/71 97 CBC/BMP: 08/22/16 0530 08/22/16 0530 Lab Results Laboratory Tests Test 08/22/16 05:30 White Blood Count 7.6 TH/MM3 Red Blood Count 5.00 MIL/MM3 Hemoglobin 15.2 GM/DL Hematocrit 45.8 % Mean Corpuscular Volume 91.5 FL Mean Corpuscular Hemoglobin 30.4 PG Mean Corpuscular Hemoglobin 33.3 % Concent Red Cell Distribution Width 12.1 % Platelet Count 197 TH/MM3 Mean Platelet Volume 7.3 FL Neutrophils (%) (Auto) 58.8 % Lymphocytes (%) (Auto) 31.4 % Monocytes (%) (Auto) 5.9 % Eosinophils (%) (Auto) 2.8 % Basophils (%) (Auto) 1.1 % Neutrophils # (Auto) 4.5 TH/MM3 Lymphocytes # (Auto) 2.4 TH/MM3 Monocytes # (Auto) 0.4 TH/MM3 Eosinophils # (Auto) 0.2 TH/MM3 Basophils # (Auto) 0.1 TH/MM3 CBC Comment DIFF FINAL Differential Comment Sodium Level 142 MEQ/L Potassium Level 3.9 MEQ/L Chloride Level 107 MEQ/L Carbon Dioxide Level 26.8 MEQ/L Anion Gap 8 MEQ/L Blood Urea Nitrogen 29 MG/DL Creatinine 1.20 MG/DL Estimat Glomerular Filtration 61 ML/MIN Rate Random Glucose 148 MG/DL Calcium Level 9.0 MG/DL Total Bilirubin 0.6 MG/DL Aspartate Amino Transf 20 U/L (AST/SGOT) Alanine Aminotransferase 30 U/L (ALT/SGPT) Alkaline Phosphatase 107 U/L Total Protein 6.8 GM/DL Albumin 3.6 GM/DL Physical Exam General General Appearance: Well Developed, Well Nourished, No Acute Distress, Comfortable Eyes Eye Exam: Pupils Equal, Pupils Reactive, Sclera White, Extraocular Movement Intact Throat Throat Exam: Oral Mucosa [place] & Moist, Oral Pharynx Normal Neck Neck Exam: Neck Supple, Trachea Midline Pulmonary Resp Exam: Clear Bilaterally, Breath Sounds Equal, No Distress Cardiology CV Exam: Regular, Normal Sinus Rhythm Gastrointestinal/Abdomen GI Exam: Soft, Non-Tender, Bowel Sounds Present Musculoskeletal MS Exam: Normal Tone Integumentary Skin Exam: Clear, Warm, Dry, Intact Extremeties Extremities Exam: No Edema Neurologic Neuro Exam: Alert, Awake, Oriented, Speech Clear, Moving All Extremities, No Focal Deficits Psychiatric Psych Exam: Appropriate Responses VTE Prophylaxis VTE Prophylaxis Device: SCDs PUD Prophylasis PUD Prophylaxis: Protonix Assessment/Plan Assessment/Plan ASSESSMENT AND PLAN: 1. This is a 66 year-old male who came to the emergency room, diagnosed with dizziness, CT of the head had carotid ultrasound and CT of the brain are within normal limits. The patient has dizziness with head movement. Neurology has seen the patient, Dr. Weiss, most likely from peripheral vascular disease. The patient cannot have MRI because of neurotransmitter placement. The electroencephalogram was normal, further recommendations per neurology. 3. Syncopal episode. Neurologist input noted, patient seen by cardiology need stress test as out patient 4. History of hypertension, continue home medications. 5. History of diabetes mellitus, ADA diet 1800, we will ADA diet on Insulin sliding scale, check blood sugars, monitor blood sugar. 6. Has history of chronic pain syndrome, continue with pain medications. 7. History of arthritis currently treated with Celebrex. 8. Deep venous thrombosis prophylaxis. SCDs. 9. Sickle-cell disease. 10. Gastrointestinal prophylaxis, Protonix 40 mg p.o. daily. wants to go home today ok to DC Home today. f/u with PCP/ Cardiology/ Neurology 1 week. Condition at discharge good. Activity as tolerated. diet cardiac medicine see discharge medicine list. Discussed Condition with: Patient Al Rivers MD Aug 22, 2016 07:48
[2016-08-22 08:03] VITALS: BP 109/74; PULSE 75; RESP 20; TEMP 96.4; O2SAT 96
--- NOTE | 2016-08-22 09:32 | MB ---
cc: WHITNEY IRWIN DATE OF CONSULTATION 08/21/2016 REASON FOR CONSULTATION Mr. Call is a 66-year-old white male with a history of hypertension, dyslipidemia, type 2 diabetes mellitus. He has had episodes of dizziness and vertigo for the last several days. He had an episode of syncope and was found by his on the floor. He does not have any chest pain. He has slight chronic dyspnea. He has had no peripheral edema, PND or orthopnea. MEDICAL HISTORY Positive for: 1. Hypertension 2. Dyslipidemia 3. Diabetes mellitus 4. Arthritis 5. Kidney cancer 6. Nephrectomy 7. Lumbar fusion 8. Nephrolithiasis 9. Emphysema 10. Appendectomy 11. Left cataract surgery 12. Left hysterectomy 13. Right nephrectomy 14. Bilateral shoulder surgery 15. Dental implants MEDICATIONS Include: 1. Baby aspirin 2. Lisinopril 3. Fentanyl 4. Tramadol 5. Celebrex 6. Furosemide 7. Glipizide ALLERGIES NEURONTIN SOCIAL HISTORY The patient quit smoking a week and a half ago. She does not drink alcohol. FAMILY HISTORY Negative for heart disease. REVIEW OF SYSTEMS Otherwise negative. PHYSICAL EXAMINATION Blood pressure 111/67, pulse 83 and regular. HEENT: Negative. 2+ carotid upstrokes. No bruits. LUNGS: Clear. HEART: Regular with no murmur, gallop or rub. No bruits. EXTREMITIES: Without edema. 2+ pulses. NEUROLOGIC: Nonfocal. EKG was reviewed and showed normal sinus rhythm. Normal axis intervals, no acute changes. LABORATORY DATA Hemoglobin 14.9, potassium 3.9, creatinine 1.2, AST and ALT normal. Troponin normal. CK 90. Echocardiogram showed preserved left ventricular function with ejection fraction of 55-60%, and mild mitral and tricuspid regurgitation, normal pulmonary artery pressures. DIAGNOSIS 1. Syncope 2. Vertigo 3. Hypertension 4. Dyslipidemia 5. Diabetes mellitus 6. History of nephrectomy for cancer DISPOSITION Mr. Call will be monitored on telemetry. Echogram showed preserved left ventricular systolic function. Cardiac enzymes are unremarkable. He has undergone neurologic workup as well. His carotid ultrasound showed no significant obstructive disease. He can be discharged home tomorrow if stable from the cardiac standpoint. I will see him back for outpatient followup in our office after discharge. MD NICOLE Cosme/NUPUR /6:58 PM /9:09 AM DHAVAL
[2016-08-23] MEDS ORDERED: REMOVE OLD DURAGESIC (FENTANYL) PATCH T-DERMAL SCH (14:00)
== END 2016-08-22 10:00 | disposition home or self-care (01) | DRG 312 ==
LOC: PHED 10:04 → PHEDA 12:31 → PH3A 14:35 → OBSVTOIN 08-20 16:38
PROVIDERS: ADMIT Family Medicine; ATTEND Family Medicine
DX: R55 Syncope and collapse (principal); J43.9 Emphysema, unspecified; I10 Essential (primary) hypertension; E11.9 Type 2 diabetes mellitus without complications; Z90.5 Acquired absence of kidney; Z79.82 Long term (current) use of aspirin; Z79.84 Long term (current) use of oral hypoglycemic drugs; M19.90 Unspecified osteoarthritis, unspecified site; Z85.528 Personal history of other malignant neoplasm of kidney; E78.00 Pure hypercholesterolemia, unspecified; Z96.611 Presence of right artificial shoulder joint; Z96.612 Presence of left artificial shoulder joint; F17.210 Nicotine dependence, cigarettes, uncomplicated; G89.4 Chronic pain syndrome; H81.399 Other peripheral vertigo, unspecified ear; D57.1 Sickle-cell disease without crisis; E78.5 Hyperlipidemia, unspecified; H40.9 Unspecified glaucoma; Z87.01 Personal history of pneumonia (recurrent); Z87.442 Personal history of urinary calculi
CPT/HCPCS: 70450; 70496; 70498; 71010; 80048; 80053; 81001; 82550; 82948; 83735; 84484; 85025; 93005; 93306; 93880; 95819; G8987-GP; G8988-GP; J1815; J7030; Q9967